=== PATIENT | female | born 1995 ===

== ENCOUNTER 2017-05-05 07:51 | Emergency (ER) | payer OTHER, MEDICAID ==
[2017-05-05 07:59] VITALS: RESP 18; O2SAT 100
[2017-05-05] MEDS ORDERED: Bupivacaine HCl 15 mg/2 ml Spinal Inj INJ STA (08:27)
--- NOTE | 2017-05-05 08:33 | C.PDOC ---
History Of Present Illness 21-year-old female, presents to ED stating she was breaking up a dog fight at work, and was bit on left hand. Patient is up to date with tetanus; States dogs are all up to date w/ shots. Denies any vomiting, numbness/weakness. (Soy Argueta) History Per: Patient History/Exam Limitations: no limitations Onset/Duration Of Symptoms: Other ([employer]) Current Symptoms Are (Timing): Still Present Time Seen by Provider: 05/05/17 08:15 Chief Complaint (Nursing): Abnormal Skin Integrity Past Medical History Reviewed: Historical Data, Nursing Documentation, Vital Signs - Medical History PMH: No Chronic Diseases Family History: States: No Known Family Hx - Social History Hx Tobacco Use: No Hx Alcohol Use: No Hx Substance Use: No - Immunization History Hx Tetanus Toxoid Vaccination: Yes Hx Influenza Vaccination: Yes Vital Signs: Last Vital Signs Temp 98.4 F 05/05/17 11:24 Pulse 65 05/05/17 11:24 Resp 18 05/05/17 11:24 BP 130/74 05/05/17 11:24 Pulse Ox 100 05/05/17 11:29 Review Of Systems Constitutional: Negative for: Fever Gastrointestinal: Negative for: Nausea, Vomiting Neurological: Negative for: Weakness, Numbness Physical Exam - Physical Exam Appears: Non-toxic, No Acute Distress Skin: Other (Left hand: Avulsion of distal portion of thumb, nail intact; There is a .5cm Laceration to hypothenar area. 4th fingernail and cuticle partially avulsed and elevated. cuticle and nail intact) Neurological/Psych: Oriented x3, Normal Motor, Normal Sensation ED Course And Treatment O2 Sat by Pulse Oximetry: 100 Medical Decision Making Medical Decision Making: PROCEDURE: LACERATION REPAIR Performed by the emergency provider Location: Radial aspect of Left thumb Description: clean wound edges Distal CMS: Normal. No deficits. Neurovascularly intact. Preparation: The wound was cleaned with NS and Betadyne. The area was prepped and draped in the usual sterile fashion. Exploration: The wound was explored and no foreign bodies were found. Procedure: The wound was closed with 5-0 nylon. There was appropriate approximation. In total, 2 stitches were used. Post-Procedure: Good closure and hemostasis. The patient tolerated the procedure well and there were no complications. CSM remains intact. Post procedure dressing applied. PROCEDURE: LACERATION REPAIR Performed by the emergency provider Location: Lateral aspect of L thumb Description: clean wound edges Distal CMS: Normal. No deficits. Neurovascularly intact. Preparation: The wound was cleaned with NS and Betadyne. The area was prepped and draped in the usual sterile fashion. Exploration: The wound was explored and no foreign bodies were found. Procedure: The wound was closed with 5-0 nylon. There was appropriate approximation. In total, 1 stitch was used. Post-Procedure: Good closure and hemostasis. The patient tolerated the procedure well and there were no complications. CSM remains intact. Post procedure dressing applied. PROCEDURE: LACERATION REPAIR Performed by the emergency provider Location: third digit, left hand. Description: clean wound edges Distal CMS: Normal. No deficits. Neurovascularly intact. Preparation: The wound was cleaned with NS and Betadyne. The area was prepped and draped in the usual sterile fashion. Exploration: The wound was explored and no foreign bodies were found. Procedure: The wound was closed with 4-0 nylon. There was appropriate approximation. In total, 2 stitches were used. Post-Procedure: Good closure and hemostasis. The patient tolerated the procedure well and there were no complications. CSM remains intact. Post procedure dressing applied. ( Olga Gutierrez) Disposition - Disposition Disposition Time: 11:13 - Disposition Disposition: HOME/ ROUTINE Condition: GOOD Additional Instructions: Wash thumb daily soap and water cover with "white cream" and dry dressing other wounds use bacatracin Return to ED in 2 - 3 days for wound check Stitches out in 10 days Prescriptions: Amoxicillin/Clavulanate [Augmentin 875 MG-125 MG] 1 tab PO BID #14 tab oxyCODONE/Acetaminophen [Percocet 5/325 mg Tab] 1 tab PO Q4H PRN #12 tab PRN Reason: .severe pain Silver Sulfadiazine 1% 20 gm [Silvadene] 1 ea TOP DAILY #30 gr Instructions: Animal Bite (ED), Acute Wound Care (ED) - Clinical Impression Clinical Impression: Animal bite wound - PA / [employer] / Resident Statement MD/DO has examined the patient and agrees with the treatment plan. - Scribe Statement The provider has reviewed the documentation as recorded by the Scribe (Tequila Varela) - Scribe Statement All medical record entries made by the Scribe were at my direction and personally dictated by me. I have reviewed the chart and agree that the record accurately reflects my personal performance of the history, physical exam, medical decision making, and the department course for this patient. I have also personally directed, reviewed, and agree with the discharge instructions and disposition. (Soy Argueta)
[2017-05-05] MEDS ORDERED: Bupivacaine HCl 0.25% PF (10 ml) Inj IJ ONE (09:00)
[2017-05-05] MEDS ORDERED: Morphine 4 MG/ML VIAL ONE (10:18)
[2017-05-05] MEDS ORDERED: Silver Sulfadiazine 1% Cream (20 gm) ONE (10:41)
[2017-05-05] MEDS ORDERED: Silver Sulfadiazine 1% Cream (20 gm) TOP STA (11:08)
[2017-05-05 11:25] VITALS: BP 130/74; PULSE 65; TEMP 98.4
== END 2017-05-05 11:25 | disposition home or self-care (01) ==
LOC: C.ER 07:51
DX: S61.052A Open bite of left thumb without damage to nail, initial encounter (principal); S61.355A Open bite of left ring finger with damage to nail, initial encounter; W54.0XXA Bitten by dog, initial encounter; Y93.89 Activity, other specified; Y92.89 Other specified places as the place of occurrence of the external cause
CPT/HCPCS: 12001; 96372; 99284; J2270

== ENCOUNTER 2017-05-08 08:42 | Emergency (ER) | payer OTHER, MEDICAID ==
--- NOTE | 2017-05-08 09:16 | C.PDOC ---
History Of Present Illness 21 year old patient presents to the ED complaining of left hand pain that began 3 days ago. 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 Patient was seen here with an avulsion to the left thumb and with other punctures/lacerations that were repaired here. She also had a CT scan done at that time. Patient was discharged with antibiotics and Silvadene cream. Patient denies fever, chills, numbness, or weakness. Time Seen by Provider: 05/08/17 09:06 Chief Complaint (Nursing): Wound Check History Per: Patient History/Exam Limitations: no limitations Onset/Duration Of Symptoms: Days Ago (3) Current Symptoms Are (Timing): Still Present Location Of Injury: Left: Hand Quality Of Symptoms: Painful Severity: Mild Pain Scale Rating Of: 3 Recent travel outside of the [place]: No Past Medical History Reviewed: Historical Data, Nursing Documentation, Vital Signs Vital Signs: Last Vital Signs Temp 98.3 F 05/08/17 10:57 Pulse 79 05/08/17 10:57 Resp 18 05/08/17 10:57 BP 124/75 05/08/17 10:57 Pulse Ox 98 05/08/17 10:57 Family History: States: Unknown Family Hx - Social History Hx Tobacco Use: No Hx Alcohol Use: No Hx Substance Use: No - Immunization History Hx Tetanus Toxoid Vaccination: Yes Hx Influenza Vaccination: Yes Hx Pneumococcal Vaccination: (unk) Review Of Systems Except As Marked, All Systems Reviewed And Found Negative. Constitutional: Negative for: Fever, Chills Musculoskeletal: Positive for: Hand Pain (left) Skin: Positive for: Other (avulsion and lacerations to left hand) Neurological: Negative for: Weakness, Numbness Physical Exam - Physical Exam Appears: Non-toxic, No Acute Distress Skin: Warm, Dry, Other (avulsion to the tip of the left thumb, laceration at the base of the left thumb is sutured, laceration to the middle finger which includes the nail) Cardiovascular: Rhythm Regular Respiratory: Normal Breath Sounds, No Rales, No Rhonchi, No Wheezing Extremity: Normal ROM Neurological/Psych: Oriented x3, Normal Motor, Normal Sensation Gait: Steady ED Course And Treatment O2 Sat by Pulse Oximetry: 100 (room air) Pulse Ox Interpretation: Normal Progress Note: Patient's wound was redressed. [facility] was contacted. Patient is instructed to follow up on Saturday. Disposition Counseled Patient/Family Regarding: Diagnosis, Need For Followup - Disposition Referrals: [facility] [Outside] Disposition: HOME/ ROUTINE Disposition Time: 09:15 Condition: STABLE Instructions: Acute Wound Care (ED) Forms: General Discharge Instructions, Work Excuse - POA Present On Arrival: None - Clinical Impression Clinical Impression: Animal bite wound, Change of dressing - Scribe Statement The provider has reviewed the documentation as recorded by the Scribeliz Alegria Provider Attestation: All medical record entries made by the Scribe were at my direction and personally dictated by me. I have reviewed the chart and agree that the record accurately reflects my personal performance of the history, physical exam, medical decision making, and the department course for this patient. I have also personally directed, reviewed, and agree with the discharge instructions and disposition.
[2017-05-08 10:59] VITALS: BP 124/75; PULSE 79; RESP 18; TEMP 98.3
[2017-05-08 11:26] VITALS: O2SAT 100
== END 2017-05-08 10:59 | disposition home or self-care (01) ==
LOC: C.ER 08:42
DX: S61.452D Open bite of left hand, subsequent encounter (principal); W54.0XXD Bitten by dog, subsequent encounter